=== PATIENT | female | born 1990 | race Two or more races ===

== ENCOUNTER 2024-05-14 12:01 | Outpatient (CLI) | payer SELFPAY ==
[2024-05-14 12:13] VITALS: BP 116/78; PULSE 109
[2024-05-14] MEDS: FERRIC SOD GLUC INJ 125 MG in SODIUM CHLORIDE 0.9% 100 ML 110 MG IV (12:52)
[2024-05-14 13:33] VITALS: BP 115/64; PULSE 101
== END 2024-05-14 14:11 | disposition home or self-care (01) ==
LOC: S4S1 12:01 → S4SX 12:02
PROVIDERS: Referring Provider Student in an Organized Health Care Education/Training Program; Visit Provider Student in an Organized Health Care Education/Training Program
DX: Z34.83 Encounter for supervision of other normal pregnancy, third trimester (principal); Z3A.29 29 weeks gestation of pregnancy
CPT/HCPCS: J2916; J7050

== ENCOUNTER 2024-05-21 12:48 | Observation (INO) | payer OTHER, SELFPAY ==
[2024-05-21 12:48] VITALS: BP 111/70; PULSE 100; RESP 20; RESP 98; TEMP 36.6
[2024-05-21 13:00] VITALS: BMI 29.5
[2024-05-21] MEDS: FERRIC SOD GLUC INJ 125 MG in SODIUM CHLORIDE 0.9% 100 ML 110 MG IV (13:44)
--- NOTE | 2024-05-21 15:07 | PC.NURSE ---
1504 discharge instructions reviewed, labor precautions reviewed, kick counts reviewed, copys given pt agrees/understands, pt to return next friday for next iron infusion
== END 2024-05-21 15:09 | disposition home or self-care (01) ==
PROVIDERS: Admitting Provider Obstetrics & Gynecology; PCP Family Medicine; Visit Provider Obstetrics & Gynecology
DX: Z34.83 Encounter for supervision of other normal pregnancy, third trimester (principal); Z3A.30 30 weeks gestation of pregnancy
CPT/HCPCS: 59025; 59899; J2916; J7050

== ENCOUNTER 2024-05-28 10:05 | Outpatient (CLI) | payer OTHER, SELFPAY ==
[2024-05-28] VITALS (8 sets, daily range): BP systolic 110; BP diastolic 61; PULSE 96–111; RESP 18–98; TEMP 36.8; O2SAT 97–98; BMI 26.9
[2024-05-28] MEDS: FERRIC SOD GLUC INJ 125 MG in SODIUM CHLORIDE 0.9% 100 ML 110 MG IV (11:09)
== END 2024-05-28 12:22 | disposition home or self-care (01) ==
LOC: S4S1 10:05 → S4SX 10:06
PROVIDERS: PCP Obstetrics & Gynecology; Referring Provider Obstetrics & Gynecology; Visit Provider Obstetrics & Gynecology
DX: Z34.83 Encounter for supervision of other normal pregnancy, third trimester (principal); Z36.9 Encounter for antenatal screening, unspecified; Z3A.31 31 weeks gestation of pregnancy
CPT/HCPCS: 59025; J2916; J7050

== ENCOUNTER 2024-06-14 21:46 | Inpatient (IN) | payer OTHER, MEDICAID, SELFPAY ==
[2024-06-14] VITALS (15 sets, daily range): BP systolic 0–128; BP diastolic 0–91; PULSE 101–132; O2SAT 93–100; BMI 30.2
[2024-06-14] MEDS: BETAMET ACET/BETAMET NA PH (Celestone) 6 MG/ML VIAL 12 MG IM (22:23)
[2024-06-14] MEDS: RINGERS LACTATED 1000 ML 1,000 ML 100 ML IV ×2 (22:23→23:28)
[2024-06-14] MEDS: Ampicillin Inj 2,000 MG in SODIUM CHLORIDE 0.9% (POP) 100 ML 200 MG IV (22:24)
[2024-06-14 22:32] LABS: Basophils % (Auto) 0 % (0-2.5); Eosinophils # (Auto) 0.1 Thou/mm3 (0.0-0.5); Eosinophils % (Auto) 1 % (0-10); Hematocrit 31.3 % (36.0-46.0); Hemoglobin 10.1 g/dL (12.0-16.0); Immature Granulocytes % (Auto) 1 % (0-0); Lymphocytes % (Auto) 17 % (10-50); Mean Corpuscular HGB Conc 32.3 g/dl (31.0-37.0); Mean Corpuscular Hemoglobin 24.5 pg (25.0-35.0); Mean Corpuscular Volume 76 fL (80-100); Monocytes % (Auto) 9 % (0-12); Neutrophils # (Auto) 8.3 Thou/mm3 (1.8-7.7); Neutrophils % (Auto) 72 % (37-80); Nucleated Red Blood Cell % 0 /100 WBC (0); Platelet Count 275 Thou/mm3 (140-440); RDW Standard Deviation 65.7 fL (36.4-46.3); Red Blood Count 4.13 Miln/mm3 (4.00-5.20); White Blood Count 11.4 Thou/mm3 (3.6-11.0)
--- NOTE | 2024-06-14 22:50 | PD.LDHP ---
Documentation for date of: 06/14/24 OB Labor/Induct. HPI History of Present Illness Chief complaint: Labor pains : 3 Para: 2 Term pregnancies: 2 pregnancies: 0 Living children: 2 History of Vaginal deliveries: 2 ANGELA: 07/24/24 Gestational Age (weeks): 34 Gestational Age (days): 2 History of present illness: 34-year-old 3 para 2-0-0-2 with intrauterine at 34 weeks and 2 days presented to labor and delivery complaining of labor pains and was noted to be dilated 5 cm. Patient has care at [facility]. Her was complicated by iron deficiency anemia for which she received IV iron therapy with her last infusion 2 weeks ago. She was noted to have a systolic blood pressure of 140 at her first visit in the first trimester but her subsequent blood pressures have been in the normal range. She denies any history of hypertension or taking any medications for elevated blood pressure. She reports persistent contractions, she denies any leaking or bleeding. She reports normal movement. She denies any headache change in vision or right upper quadrant pain or swelling of her face or hands. History of Present Dating criteria: LMP confirmed by 1st trimester US Adequate Care: Yes Abnormal ultrasound findings: None Obstetrical complications: other (Iron deficiency anemia) Review of Systems Cardiovascular Comments: Denies any chest pain palpitations Respiratory Comments: Denies any shortness of breath cough or wheezing Gastrointestinal Comments: Denies any constipation diarrhea or nausea or vomiting Genitourinary Comments: Denies any dysuria hematuria or urinary frequency Neurologic Comments: Denies any headache change in vision Psychiatric Comments: Denies any depression or anxiety Past Medical History Past Medical History CARDIAC: Positive Hypercholesterolemia GASTROINTESTINAL: Positive Gall Bladder Disease and Gastroesophageal Reflux Disease HEMATOLOGIC: Positive Anemia Family History OTHER FAMILY HX: Father: hyperlipidemia, type 2 diabetes, chronic hypertension Paternal grandfather: type 2 diabetes Paternal grandmother: hypertension, hyperlipidemia Surgical History SURGICAL: Positive Hx Cholecystectomy OTHER SURGICAL HX: Colposcopy with biopsy Social History SMOKING STATUS: Never smoker ALCOHOL: Never OCCUPATION: educational assistant teacher at [employer] Meds Home Medications and Allergies Home Medications ?Medication ?Instructions ?Recorded ?Confirmed ?Type [id number] 1 mg 1 tab PO DAILY 05/21/24 06/14/24 History tablet Allergies Allergy/AdvReac Type Severity Reaction Status Date / Time No Known Allergies Allergy Verified 04/14/25 22:03 OB Exam Physical Exam Vital signs: Pulse BP 108 H 0/0 L 06/14/24 22:12 06/14/24 22:42 Routine HEENT Exam Comments: Oropharynx and sclera clear Routine Respiratory Exam Comments: Clear to auscultation bilaterally Routine Cardiovascular Exam Comments: Regular rate and rhythm Routine Abdominal Exam Comments: Gravid consistent with 34 weeks gestation Detailed Labor and Delivery Exam Dilation (cm): 5 Effacement (%): 90 Cervix position: anterior station: -2 Consistency: soft Presentation: Vertex Membranes: intact Routine Extremities Exam Comments: Nontender or edema Routine Skin Exam Comments: No gross rashes or lesions Routine Neurological Exam Comments: No focal deficit OB Results Labs 06/14/24 22:52 06/14/24 22:52 Labs: Short CBC 06/14/24 Range/Units 22:17 WBC 11.4 H (3.6-11.0) Thou/mm3 Hgb 10.1 L (12.0-16.0) g/dL Hct 31.3 L (36.0-46.0) % Plt Count 275 (140-440) Thou/mm3 Impressions Impression: Intrauterine at 34 weeks and 2 days Active labor Possible borderline chronic hypertension versus gestational hypertension versus preeclampsia without severe features versus isolated blood pressure elevation due to labor pains. Iron deficiency anemia Anticipate spontaneous vaginal delivery Betamethasone for lung maturity Ampicillin for group B strep prophylaxis Desires epidural 2 large-bore IVs PIH labs for initial elevated blood pressures on admission
[2024-06-14 23:00] LABS: Collection Type, Urine Clean Catch
[2024-06-14 23:02] LABS: Basophils % (Auto) 0 % (0-2.5); Eosinophils # (Auto) 0.1 Thou/mm3 (0.0-0.5); Eosinophils % (Auto) 1 % (0-10); Hematocrit 31.1 % (36.0-46.0); Hemoglobin 9.7 g/dL (12.0-16.0); Immature Granulocytes % (Auto) 1 % (0-0); Immature Granulocytes Auto 0.14 Thou/mm3 (0.00-0.00); Lymphocytes # (Auto) 2.1 Thou/mm3 (1.0-4.8); Lymphocytes % (Auto) 18 % (10-50); Mean Corpuscular HGB Conc 31.2 g/dl (31.0-37.0); Mean Corpuscular Hemoglobin 24.5 pg (25.0-35.0); Mean Corpuscular Volume 79 fL (80-100); Monocytes # (Auto) 1.1 Thou/mm3 (0.0-0.8); Monocytes % (Auto) 9 % (0-12); Neutrophils # (Auto) 8.5 Thou/mm3 (1.8-7.7); Neutrophils % (Auto) 71 % (37-80); Nucleated Red Blood Cell % 0 /100 WBC (0); Platelet Count 240 Thou/mm3 (140-440); RDW Standard Deviation 68.5 fL (36.4-46.3); Red Blood Count 3.96 Miln/mm3 (4.00-5.20)
[2024-06-14 23:08] LABS: Bilirubin,Urine Negative (Negative); Blood,Urine 2+ (Negative); Clarity,Urine Turbid (Clear/Hazy); Color,Urine Yellow (Lt Yel-Yel); Culture Indicated,Urine Contaminated; Glucose, Urine 1+ (Negative); Hyaline Casts,Urine < 1 /hpf (0-1); Ketones,Urine Negative (Negative); Leukocyte Esterase,Urine Positive (Negative); Nitrite,Urine Negative (Negative); Protein,Urine 1+ (Neg - Trace); RBC,Urine 7 /hpf (0-3); Specific Gravity,Urine 1.026 (1.001-1.035); Squamous Epithelial Cell,Urine 21 /hpf (0-5); Urobilinogen,Urine Negative mg/dL (0.0-1.0); WBC,Urine 35 /hpf (0-5)
[2024-06-14 23:11] LABS: Amphetamine/Metham Scrn,Ur OB Negative (Negative); Benzoylecgonine Screen, Ur OB Negative (Negative); Opiate Screen,Urine OB Negative (Negative); THC Screen,Urine OB Negative (Negative)
[2024-06-14 23:11] LABS: Syphilis Nonreactive (Nonreactive)
[2024-06-14 23:30] LABS: Alanine Aminotransferase < 7 U/L (10-49); Albumin/Globulin Ratio 1.5 (1.2-2.2); Alkaline Phosphatase 142 U/L (46-116); Anion Gap 8 (7-16); Aspartate Amino Transferase 12 U/L (0-34); BUN/Creatinine Ratio 10 Ratio (12-20); Bilirubin,Total 0.2 mg/dL (0.3-1.2); Blood Urea Nitrogen 7 mg/dL (9-23); Calcium 9.2 mg/dL (8.3-10.6); Calcium (Corrected) 9.2 mg/dL (8.5-10.1); Carbon Dioxide 24.3 mMol/L (20.0-31.0); Chloride 106 mMol/L (98-107); Creatinine (Component) 0.7 mg/dL (0.6-1.3); Globulin 2.6 gm/dL (2.3-3.5); Glucose 93 mg/dL (74-106); Osmolality,Calculated 273 (275-295); Potassium 3.8 mMol/L (3.4-5.1); Sodium 138 mMol/L (136-145); Total Protein 6.6 gm/dL (5.7-8.2); Uric Acid 3.3 mg/dL (3.1-7.8); eGFR > 60 See Note
[2024-06-14 23:48] LABS: Fibrinogen 470 mg/dL (175-375); Partial Thromboplastin Time 24.4 Seconds (22.0-36.0); Prothrombin Time 10.6 Seconds (9.0-12.2)
[2024-06-15] VITALS (92 sets, daily range): BP systolic 0–126; BP diastolic 0–73; PULSE 82–168; RESP 16–19; TEMP 36.8–37.1; O2SAT 90–100
[2024-06-15] MEDS: RINGERS LACTATED 1000 ML 1,000 ML 100 ML IV (01:14)
[2024-06-15] MEDS: Ampicillin Inj 1,000 MG in SODIUM CHLORIDE 0.9% (Popper) 50 ML 50 MG IV (02:36)
[2024-06-15] MEDS: OXYTOCIN in NS 20 units 20 UNIT/1,000 ML BAG 125 UNIT IV (03:17)
[2024-06-15] MEDS: METHYLERGONOVINE INJ 0.2 MG/ML VIAL IM (03:24)
[2024-06-15] MEDS: TRANEXAMIC ACID 1,000 MG IVPB 1,000 MG/100 ML BAG 200 MG IV (03:28)
[2024-06-15] MEDS: MISOPROSTOL 200 mCg TABLET 800 MCG PR (03:35)
[2024-06-15] MEDS: BENZO/LANO/ALOE (Dermoplast) 60 GM CAN 1 SPRAY TOP (03:43)
--- NOTE | 2024-06-15 04:00 | PD.LDDELS ---
Data (Reynolds) Data : 3 Para: 2 Term: 2 : 0 : 0 Delivery Data (Reynolds) Labor Data ROM Date: 06/15/24 ROM Time: 03:01 Rupture Type: AROM Amniotic Fluid: Clear Delivery Data EDC: 07/24/24 EDC calculated by:: LMP/early US confirmation Labor Onset Stage 1 Date: 06/14/24 Labor Onset Stage 1 Time: 20:00 Labor Onset Stage 2 Date: 06/15/24 Labor Onset Stage 2 Time: 02:17 Delivery Date: 06/15/24 Delivery Time: 03:13 Gestational age (weeks): 34 Gestational age (days): 2 Placenta Delivery Date: 06/15/24 Placenta Delivery Time: 03:17 Delivered by: Dixon Lyle Delivery nurse: Harper Turner Other staff at delivery: Nurse Other staff at delivery: Suri Gao Delivery Method Delivery: Vaginal Delivery Type: Spontaneous Presentation: Vertex Position: OA Anesthesia Type Primary Anesthesia: Epidural Placenta Placenta Delivery: Spontaneous Placenta Cultures Obtained: No Placenta Sent for Examination: Yes Cord Sample: Cord Blood Obtained Lacerations #1: Perineal: 1st degree Perineal repair Sutures used for repair: 3.0 Chromic EBL Estimated blood loss (ml): 300 Additional Procedures None Complications Complications: None Data (Reynolds) Data Gender: Male Weight Grams: 2545 1 Minute Total: 8 5 Minute Total: 9
[2024-06-15] MEDS: ONDANSETRON INJ 2 MG/ML INJ 2 ML 4 MG IV (05:07)
[2024-06-15] MEDS: IBUPROFEN TAB 400 MG TABLET 800 MG PO ×2 (08:40→14:03)
[2024-06-15 09:06] LABS: Basophils % (Auto) 0 % (0-2.5); Eosinophils % (Auto) 0 % (0-10); Hematocrit 30.5 % (36.0-46.0); Hemoglobin 9.6 g/dL (12.0-16.0); Immature Granulocytes % (Auto) 1 % (0-0); Immature Granulocytes Auto 0.17 Thou/mm3 (0.00-0.00); Lymphocytes % (Auto) 5 % (10-50); Mean Corpuscular HGB Conc 31.5 g/dl (31.0-37.0); Mean Corpuscular Hemoglobin 23.9 pg (25.0-35.0); Mean Corpuscular Volume 76 fL (80-100); Monocytes # (Auto) 1.2 Thou/mm3 (0.0-0.8); Monocytes % (Auto) 6 % (0-12); Neutrophils # (Auto) 17.7 Thou/mm3 (1.8-7.7); Neutrophils % (Auto) 88 % (37-80); Nucleated Red Blood Cell % 0 /100 WBC (0); Platelet Count 248 Thou/mm3 (140-440); RDW Standard Deviation 66.2 fL (36.4-46.3); Red Blood Count 4.01 Miln/mm3 (4.00-5.20); White Blood Count 20.1 Thou/mm3 (3.6-11.0)
[2024-06-16] MEDS: IBUPROFEN TAB 400 MG TABLET 800 MG PO ×2 (00:03→08:29)
[2024-06-16 04:13] VITALS: BP 95/60; PULSE 75; RESP 18; TEMP 36.4; O2SAT 96
[2024-06-16 07:05] VITALS: BP 100/66; PULSE 75; RESP 20; TEMP 36.7; O2SAT 96
--- NOTE | 2024-06-16 07:41 | ESDS_ITS ---
DS: Providers Provider Date of admission: 06/14/24 22:09 Primary care physician: Physician No Primary/Family Admitting Provider: Dixon Lyle MD Attending Provider on Admission: Jaswinder Kim MD Consults: 06/15/24 04:31 Referral Routine Comment: Attending Provider on DC: Tammi Ramirez CNM Discharging Provider: Tammi Ramirez CNM Anticipated date of discharge: 06/16/24 DS: Diagnosis Discharge Diagnosis (1) (normal spontaneous vaginal delivery): Status: Acute (2) Encounter for care of lactating mother: Status: Acute Problem List Completed Was Problem List Reviewed/Reconciled?: Yes Summary/Hosp Course Brief History: 34-year-old 3 para 2-0-0-2 with intrauterine at 34 weeks and 2 days presented to labor and delivery complaining of labor pains and was noted to be dilated 5 cm. Patient has care at [facility]. Her was complicated by iron deficiency anemia for which she received IV iron therapy with her last infusion 2 weeks ago. She was noted to have a systolic blood pressure of 140 at her first visit in the first trimester but her subsequent blood pressures have been in the normal range. She denies any history of hypertension or taking any medications for elevated blood pressure. She reports persistent contractions, she denies any leaking or bleeding. She reports normal movement. She denies any headache change in vision or right upper quadrant pain or swelling of her face or hands. 06/16/24: 06/16/24: day 2. Patient is stable and afebrile doing well. Uterus is nontender fundus firm minimal lochia. No complaints. Discharge instructions given. Patient to follow-up with all [facility] provider in 3 weeks . Peripartum Data Delivery Method: Normal Vaginal Delivery Episiotomy Description: None Laceration Description: yes and see Delivery Summary complications: none 1: Gender: Male Disposition of : home Status at Discharge Cognitive/behavioral status at discharge: Alert and oriented x 3 Functional status at discharge: independent ambulation Overall status at discharge: patient is progressing back to baseline Time Spent with Patient Time attestation: Total time spent providing and/or coordinating discharge services: Time spent: Greater than 30 minutes Exam Vital Signs Temp Pulse Resp BP Pulse Ox O2 Del Method 98.1 F 75 20 100/66 96 Room Air 06/16/24 07:05 06/16/24 07:05 06/16/24 07:05 06/16/24 07:05 06/16/24 07:05 06/16/24 07:05 Constitutional Constitutional: no acute distress Routine HEENT Exam Head: Present normocephalic and atraumatic Eye: Present EOMI, PERRL and normal accommodation ENT: Present mucous membranes moist Routine Neck Exam Neck: Present supple, full ROM and trachea midline Routine Respiratory Exam Respiratory: Present chest non-tender, lungs clear, normal breath sounds and no resp distress Routine Cardiovascular Exam Cardiovascular: Present RRR Routine Abdominal Exam Abdominal: Present soft and normoactive bowel sounds; Absent tenderness or distended Comments: Uterus nontender Fundus firm Routine Exam Patient deferred: external exam Routine Extremities Exam Extremities: Present full ROM, pulses intact and normal capillary refill; Absent calf tenderness or tenderness Routine Back/Spine/Pelvis Exam Back/Spine: Present full ROM Routine Skin Exam Skin: Present intact, dry and warm Routine Neurological Exam Neurological: Present alert, oriented X3 and CN II-XII intact Routine Psychiatric Exam Psychiatric: Present normal affect and normal thought process Discharge Plan Plan Patient Disposition: HOME (Self Care) Patient condition on transfer: Stable Prescriptions/Referrals Prescriptions/Med Rec: New ibuprofen 600 mg tablet 600 mg PO Q6H PRN (Reason: pain) Qty: 30 0RF docusate sodium [Colace] 100 mg capsule 100 mg PO BID Qty: 60 0RF lanolin 50 % ointment 1 applic topical TID PRN (Reason: skin irritation) Qty: 15 0RF Continued [id number] 1 mg tablet 1 tab PO DAILY Referrals: No Primary/Family,Physician [Primary Care Provider] - Patient/Caregiver Discharge Instructions Discharge Activity: activity as tolerated Other Discharge Activity Instructions:: Follow up at [facility] in 3 wks. Education Materials: After a Vaginal , After Delivery Concerns Print Language: Romansh Stand Alone Forms: Melissa Award Info., Patient Portal Info Letter, Work/Release Restrictions Discharge Order Discharge Orders: Discharge (Routine); Ordered 06/16/24 Ordered By: Tammi Ramirez Planned Discharge Date 06/16/24
== END 2024-06-16 08:30 | disposition home or self-care (01) | DRG 807 ==
LOC: S4SX 06-15 03:47 → S4NX 06-15 07:05 → S4SX 06-15 07:28
PROVIDERS: Admitting Provider Specialist; Visit Provider Student in an Organized Health Care Education/Training Program
DX: O60.14X0 Preterm labor third trimester with preterm delivery third trimester, not applicable or unspecified (principal); Z37.0 Single live birth; Z3A.34 34 weeks gestation of pregnancy; O70.0 First degree perineal laceration during delivery; O99.02 Anemia complicating childbirth; D50.8 Other iron deficiency anemias; R03.0 Elevated blood-pressure reading, without diagnosis of hypertension
CPT/HCPCS: 36415; 80053; 80307; 81001; 84550; 85025; 85384; 85610; 85730; 86780; 86850; 86900; 86901; 86923; J0290; J0702; J2210; J2405; J2590; J2795; J3010; J3490; J7050; J7120; S0191; A9270